=== PATIENT | female | born 1935 | race Caucasian/White ===

== ENCOUNTER 2017-04-01 07:46 | Outpatient (CLI) ==
[2015-09-09 10:15] VITALS: BMI 30.1
[2017-04-01 07:57] VITALS: BP 149/75; TEMP 97.3
[2017-04-01] MEDS ORDERED: PROLIA SUBCUT STA (07:58)
== END 2017-04-01 07:47 | disposition home or self-care (01) ==
LOC: OPMED 07:46
PROVIDERS: ATTEND Internal Medicine
DX: M85.80 Other specified disorders of bone density and structure, unspecified site (principal)
CPT/HCPCS: 96372

== ENCOUNTER 2017-09-18 06:27 | Emergency (ER) | payer OTHER ==
[2017-09-18 06:43] VITALS: BP 166/97; TEMP 99.3; BMI 30.2
[2017-09-18] MEDS ORDERED: LOPRESSOR PO STA (06:51)
--- NOTE | 2017-09-18 06:56 | ED.PDOC ---
General ED Provider: Dr. JAMILA LAWRENCE Chief Complaint: Hypertension Stated Complaint: Patient presents with feeling shakey, like her BP is high. Onset last evening. Pt admits to mild SOB intermittently, no nausea/vomiting, no fever or chills, denies any pain, no diaphoresis. On further questioning these symptoms have been recurring almost daily and coincide with "new BP med" ( anastrazole, which is an anti-breast cancer hormone tx) she began 2 months ago. She has not told her doctor about symptoms. Time Seen by Physician: 06:55 Mode of Arrival: Walk-In Information Source: Patient, Family Exam Limitations: No limitations Primary Care Provider: THEO DE LEON Nursing and Triage Documentation Reviewed and Agree: Yes Cardiovascular Complaint Exam - Hypertension Complaint/Exam Symptoms Are: Still present Timing: Intermittent Reported B/P Prior to Arrival: 170/94 Aggravating: Reports: None Alleviating: Reports: Rest Associated Signs and Symptoms: Reports: Anxiety Related History: Reports: Similar episode (has been occurring alomost daily x 2 months) Related Surgical History: Reports: None Cardiac Risk Factors: Reports: Hypertension Recent Change in Medications: Yes (2 months ago changed to new BP med) A/V Nicking: No Papilledema Present: No JVD Present: No Carotid Bruit Present: No Femoral Pulses Bounding: No Differential Diagnoses: Hypertension, Angina (atypical), Other (adverse reaction to medication) Review of Systems - Review Of Systems Constitutional: Reports: No symptoms Eyes: Reports: No symptoms Ears, Nose, Mouth, Throat: Reports: No symptoms Respiratory: Reports: Short of air (mild) Cardiac: Reports: Palpitations (feels like her heart is racing (even though it is not)) GI: Reports: No symptoms : Reports: No symptoms Musculoskeletal: Reports: No symptoms Skin: Reports: No symptoms Neurological: Reports: Anxiety Endocrine: Reports: No symptoms Hematologic/Lymphatic: Reports: No symptoms All Other Systems: Reviewed and Negative Past Medical History - Past Medical History Previously Healthy: Yes Endocrine: Reports: None Cardiovascular: Reports: Hypertension Respiratory: Reports: None Hematological: Reports: None Gastrointestinal: Reports: GERD Genitourinary: Reports: None Neuro/Psych: Reports: None Musculoskeletal: Reports: None Cancer: Reports: Breast (6 years ago) Last Menstrual Period: hyst Other Pertinent Past Medical History: LEFT MASTECTOMY - Surgical History General Surgical History: Reports: Hysterectomy, Adenoidectomy, Other (LEFT MASTECTOMY) - Family History Family History: Reports: Unknown - Social History Smoking Status: Never smoker Hx Substance Use: No Alcohol Screening: None Lives: With family - Immunizations Tetanus Shot up to Date: Yes Influenza Vaccine within 12 Months: Yes Pneumococcal Vaccine up to Date: No Physical Exam - Physical Exam Appearance: Well-appearing, No pain distress, Well-nourished Ill-appearing: None Pain Distress: None Eyes: MARIAM, EOMI, Conjunctiva clear ENT: Ears normal, Nose normal, Oropharynx normal Neck: Supple Respiratory: Airway patent, Breath sounds clear, Breath sounds equal, Respirations nonlabored Cardiovascular: RRR, Pulses normal, No rub, No murmur GI/: Soft, Nontender, No masses, Bowel sounds normal, No Organomegaly Musculoskeletal: Normal strength, ROM intact, No edema, No calf tenderness Skin: Warm, Dry, Normal color Neurological: Sensation intact, Motor intact, Reflexes intact, Cranial nerves intact, Alert, Oriented Psychiatric: Affect appropriate, Mood appropriate Interpretation - Radiology Interpretation Radiology Interpretation By: Radiologist Radiology Results: No acute changes Exam Interpreted: CXR - EKG Interpretation Time of EKG #1: 06:56 Rate: Normal Rhythm: Sinus Leander: Left ST Segment: Normal Interpretation: Left axis deviation, otherwise normal Critical Care Note - Critical Care Note Total Time (mins): 0 Course - Course Hematology/Chemistry: 09/18/17 07:08 09/18/17 07:08 Orders, Labs, Meds: Lab Review 09/18/17 09/18/17 09/18/17 07:08 07:08 07:25 WBC 6.08 RBC 4.09 L Hgb 12.1 Hct 34.5 L MCV 84.4 MCH 29.6 MCHC 35.1 RDW Coeff of Inna 12.4 Plt Count 277 Immature Gran % (Auto) 0.2 Neut % (Auto) 72.3 Lymph % (Auto) 18.3 [place] % (Auto) 6.4 Eos % (Auto) 2.1 Baso % (Auto) 0.7 Immature Gran # (Auto) 0.0 Neut # 4.4 Lymph # 1.1 [place] # 0.4 Eos # 0.1 Baso # 0.0 ESR 10 Sodium 125 L Potassium 4.3 Chloride 94 L Carbon Dioxide 19 L Anion Gap 16.3 BUN 7 Creatinine 0.74 Estimated GFR (MDRD) 75.00 BUN/Creatinine Ratio 9.45 Glucose 140 H Calcium 9.2 Total Bilirubin 0.53 AST 15 ALT 13 Alkaline Phosphatase 30 L Total Protein 6.8 Albumin 3.8 Globulin 3.0 Albumin/Globulin Ratio 1.27 Urine Color Urine Clarity Urine pH Ur Specific [place] Urine Protein Urine Glucose (UA) Urine Ketones Urine Blood Urine Nitrite Urine Bilirubin Urine Urobilinogen Ur Leukocyte Esterase Urine Microscopic RBC Ur Squamous Epith Cells Influenza A (Rapid) Negative Influenza B (Rapid) Negative 09/18/17 07:25 WBC RBC Hgb Hct MCV MCH MCHC RDW Coeff of Inna Plt Count Immature Gran % (Auto) Neut % (Auto) Lymph % (Auto) [place] % (Auto) Eos % (Auto) Baso % (Auto) Immature Gran # (Auto) Neut # Lymph # [place] # Eos # Baso # ESR Sodium Potassium Chloride Carbon Dioxide Anion Gap BUN Creatinine Estimated GFR (MDRD) BUN/Creatinine Ratio Glucose Calcium Total Bilirubin AST ALT Alkaline Phosphatase Total Protein Albumin Globulin Albumin/Globulin Ratio Urine Color Yellow Urine Clarity Clear Urine pH 6.0 Ur Specific [place] 1.015 Urine Protein Negative Urine Glucose (UA) Negative Urine Ketones Negative Urine Blood Trace-intact Urine Nitrite Negative Urine Bilirubin Negative Urine Urobilinogen 0.2 Ur Leukocyte Esterase Negative Urine Microscopic RBC 0-2 Ur Squamous Epith Cells Not present Influenza A (Rapid) Influenza B (Rapid) Orders Category Date Time Status EKG-(ED ONLY) Stat CARDIO 09/18/17 06:49 Completed [employer]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] .ONCE EMERGENCY 09/18/17 06:50 Active BLOOD CULTURE (ED ONLY) Stat LAB 09/18/17 07:08 Received CBC W/ AUTO DIFF Stat LAB 09/18/17 07:08 Completed COMPREHENSIVE METABOLIC PANEL Stat LAB 09/18/17 07:08 Completed ESR Stat LAB 09/18/17 07:08 Completed MOLECULAR GROUP A STREP Stat LAB 09/18/17 07:25 Results RAPID FLU A/B Stat LAB 09/18/17 07:25 Completed STREP SCREEN Stat LAB 09/18/17 07:25 Results URINALYSIS C & S IF INDICATED Stat LAB 09/18/17 07:25 Completed Metoprolol Tartrate [Lopressor] MEDS 09/18/17 06:51 Discontinued 100 mg PO ONCE STA CXR [CHEST, 2 VIEWS PA & LAT] Stat RADS 09/18/17 06:50 Completed Medications Discontinued Medications Generic Name Dose Route Start Last Admin Trade Name Freq PRN Reason Stop Dose Admin Metoprolol Tartrate 100 mg 09/18/17 06:51 09/18/17 06:58 Lopressor PO 09/18/17 06:52 100 mg ONCE STA Administration Vital Signs: Temp Pulse Resp BP Pulse Ox 09/18/17 06:30 99.3 F 80 20 166/97 H 99 AMI Core - Clinical Trial Participant Clinical Trial Participant: No - Palliative Care Palliative Care: none - Aspirin Reason for not ordering Aspirin: not indicated - Statins Reason for not ordering Statins: not indicated - Fibrinolytic Reason for not ordering Fibrinolytic: not indicated - EKG Initial Interpretation EKG Initial Interpretation Date: 09/18/17 (Left axis deviation, otherwise WNL) DONI Risk Score Age >/= 65: Yes >/= 3 CAD Risk Factors: No Known CAD (Stenosis >/= 50%): No ASA Use in Past 7 Days: No Severe Angina (>/= 2 episodes in 24 hours): No EKG ST Changes >/= 0.5mm: No Postive Cardiac Marker: No DONI Total Score: 1 DONI Risk Score: Risk Score Odds of by 30D 0 0.1 (0.1-0.2) 1 0.3 (0.2-0.3) 2 0.4 (0.3-0.5) 3 0.7 (0.6-0.9) 4 1.2 (1.0-1.5) 5 2.2 (1.9-2.6) 6 3.0 (2.5-3.6) 7 4.8 (3.8-6.1) Departure - Departure Time of Disposition: 08:06 Disposition: HOME SELF-CARE Discharge Problem: Adverse drug reaction Qualifiers: Encounter type: initial encounter Qualified Code(s): T88.7XXA - Unspecified adverse effect of drug or medicament, initial encounter Instructions: Adverse Drug Reaction (ED) Condition: Good Pt referred to PMD for follow-up: Yes (Follow up with your oncologist and your personal doctor MARCOS) Additional Instructions: Stop taking anastrazole. Allergies/Adverse Reactions: Allergies shellfish derived Adverse Reaction (Verified 09/18/17 06:43) Difficulty Swallowing cheddar cheese Adverse Reaction (Uncoded 09/18/17 06:43) Difficulty Swallowing Home Medications: Ambulatory Orders Metoprolol Succinate [Toprol Xl] 100 mg PO DAILY 10/03/13 Omeprazole [Prilosec] 20 mg PO QDAC 10/03/13 Anastrozole 1 mg PO DAILY 09/18/17 Isosorbide Mononitrate [Imdur] 30 mg PO DAILY 09/18/17 Losartan Potassium [Cozaar] 50 mg PO DAILY 09/18/17 Paroxetine HCl 10 mg PO DAILY 09/18/17 Simvastatin [Zocor] 40 mg PO DAILY 09/18/17 Disposition Discussed With: Patient
[2017-09-18 07:14] LABS: BASOPHILS % (AUTO) 0.7 % (0.0-3.0); EOSINOPHILS # (AUTO) 0.1 K/ul (0.0-0.7); EOSINOPHILS % (AUTO) 2.1 % (0.0-7.0); HEMATOCRIT 34.5 % (37.0-47.0); HEMOGLOBIN 12.1 g/dl (12.0-16.0); IMMATURE GRANULOCYTE % (AUTO) 0.2 % (0.0-5.0); LYMPHOCYTES # (AUTO) 1.1 K/uL (0.60-3.4); LYMPHOCYTES % (AUTO) 18.3 (10.0-50.0); MEAN CORPUSCULAR HEMOGLOBIN 29.6 pg (27.0-31.0); MEAN CORPUSCULAR HGB CONC 35.1 (31.8-35.4); MEAN CORPUSCULAR VOLUME 84.4 fl (81.0-99.0); MONOCYTES # (AUTO) 0.4 K/uL (0.4-2.0); MONOCYTES % (AUTO) 6.4 (0-10); NEUTROPHILS # (AUTO) 4.4 K/ul (2.0-6.9); NEUTROPHILS % (AUTO) 72.3; PLATELET COUNT 277 10^3/uL (140-440); RED BLOOD COUNT 4.09 10^6/ul (4.20-5.40); WHITE BLOOD COUNT 6.08 K/ul (4.6-10.2)
[2017-09-18 07:33] LABS: ALBUMIN 3.8 g/dL (3.4-5.0); ALBUMIN/GLOBULIN RATIO 1.27; ANION GAP 16.3; BILIRUBIN,TOTAL 0.53 mg/dL (0.00-1.20); BUN/CREATININE RATIO 9.45; CALCIUM 9.2 mg/dL (8.2-10.2); CREATININE 0.74 mg/dL (0.60-1.30); POTASSIUM 4.3 mmol/L (3.5-5.10); TOTAL PROTEIN 6.8 g/dL (5.8-8.1)
[2017-09-18 07:36] LABS: BILIRUBIN,URINE Negative (NEGATIVE); KETONES,URINE Negative (NEGATIVE); LEUKOCYTE ESTERASE ,URINE Negative (NEGATIVE); NITRITE,URINE Negative (NEGATIVE); PROTEIN,URINE Negative (NEGATIVE); URINE, BLOOD Trace-intact (NEGATIVE)
[2017-09-18 07:38] LABS: ADD URINE MICROSCOPIC YES
[2017-09-18 07:41] LABS: ERYTHROCYTE SEDIMENTATION RATE 10 mm/hr (0-20); ESR INTERNAL QC INTERNAL QC VALID
--- NOTE | 2017-09-18 07:45 | DI ---
EXAM: Chest two views HISTORY: Chest, two-view COMPARISON: Fever TECHNIQUE: Two views of the chest were performed FINDINGS: The lungs are clear. Lungs are hyperinflated. There is no pleural effusion or pneumothorax . The heart is normal in size. The mediastinal contour is normal, noting atherosclerosis. There ar e no acute abnormalities of the bones. Surgical clips left axillary region. IMPRESSION: 1. No acute cardiopulmonary process. 2. Hyperinflated lungs may suggest chronic obstructive pulmonary disease.
[2017-09-18 07:49] LABS: FLU INTERNAL QC INTERNAL QC VALID; RAPID FLU A NEGATIVE (NEGATIVE); RAPID FLU B NEGATIVE (NEGATIVE)
== END 2017-09-18 08:15 | disposition home or self-care (01) ==
LOC: ED 06:27
DX: T88.7XXA Unspecified adverse effect of drug or medicament, initial encounter (principal); I10 Essential (primary) hypertension; R06.02 Shortness of breath; Z79.899 Other long term (current) drug therapy; Z85.3 Personal history of malignant neoplasm of breast
CPT/HCPCS: 36415; 80053; 81001; 85025; 85651; 87040; 87651; 87804; 87880; 93005; 93010; 99284

== ENCOUNTER 2018-04-13 11:23 | Outpatient (POV) | payer OTHER ==
[2013-05-17 10:01] VITALS: TEMP 98.4
== END 2018-04-13 17:00 ==
LOC: OUTPT 11:23
PROVIDERS: ATTEND Otolaryngology
DX: H91.90 Unspecified hearing loss, unspecified ear (principal)

== ENCOUNTER 2018-04-19 12:42 | Emergency (ER) | payer OTHER ==
[2018-04-19 12:49] VITALS: TEMP 98.4; BMI 30.1
--- NOTE | 2018-04-19 13:28 | ED.PDOC ---
General ED Provider: Dr. YANIRA JOHNSON Chief Complaint: Hypertension Stated Complaint: Dizziness and uncontrolled Hypertension. Time Seen by Physician: 12:50 Mode of Arrival: Wheelchair Information Source: Patient Exam Limitations: No limitations Primary Care Provider: THEO DE LEON Nursing and Triage Documentation Reviewed and Agree: Yes Reviewed sepsis parameters & appropriate labs ordered?: Yes System Inflammatory Response Syndrome: Not Applicable Sepsis Protocol: For patient's 13 years and over: Temp is 96.8 and below OR 101 and greater Pulse >90 BPM Resp >20/minute Acutely Altered Mental Status Are patient's symptoms suggestive of a new infection, such as: -Pneumonia -Skin, Soft Tissue -Endocarditis -UTI -Bone, Joint Infection -Implantable Device -Acute Abdominal Infection -Wound Infection -Meningitis -Blood Stream Catheter Infection -Unknown System Inflammatory Response Syndrome: Not Applicable Cardiovascular Complaint Exam - Hypertension Complaint/Exam Onset/Duration: 2 weeks Symptoms Are: Still present Timing: Constant (Dizziness fairly consistent) Aggravating: Reports: Exertion Alleviating: Reports: None Associated Signs and Symptoms: Reports: Anxiety, Recent stress, Headache, Tingling, Weakness, Dizziness Related History: Reports: Similar episode, Current ARBs, Current Beta Clover, Current Ca Guido.Clover Related Surgical History: Reports: None Cardiac Risk Factors: Reports: Hypertension, Elevated lipids, Family history Recent Change in Medications: No A/V Nicking: No Papilledema Present: No JVD Present: No Carotid Bruit Present: No Femoral Pulses Bounding: No Differential Diagnoses: Hypertension Quality Indicator For Non-Traumatic Chest Pain/Syncope: EKG Performed Review of Systems - Review Of Systems Constitutional: Reports: Weakness Eyes: Reports: No symptoms Ears, Nose, Mouth, Throat: Reports: No symptoms Respiratory: Reports: No symptoms Cardiac: Reports: No symptoms GI: Reports: No symptoms : Reports: No symptoms Musculoskeletal: Reports: Back pain Skin: Reports: No symptoms Neurological: Reports: Other (dizziness). Denies: Anxiety, Depressed, Headache , Numbness, Tingling, Tonic-Clonic seizures Endocrine: Reports: No symptoms Hematologic/Lymphatic: Reports: No symptoms All Other Systems: Reviewed and Negative Past Medical History - Past Medical History Previously Healthy: Yes Endocrine: Reports: None Cardiovascular: Reports: Hypertension Respiratory: Reports: None Hematological: Reports: None Gastrointestinal: Reports: GERD Genitourinary: Reports: None Neuro/Psych: Reports: None Musculoskeletal: Reports: None Cancer: Reports: Breast (6 years ago) Last Menstrual Period: none Other Pertinent Past Medical History: LEFT MASTECTOMY - Surgical History General Surgical History: Reports: Hysterectomy, Adenoidectomy, Other (LEFT MASTECTOMY) - Family History Family History: Reports: Unknown - Social History Smoking Status: Never smoker Hx Substance Use: No Alcohol Screening: None - Immunizations Influenza Vaccine within 12 Months: Yes Pneumococcal Vaccine up to Date: No Physical Exam - Physical Exam Appearance: Well-appearing, No pain distress, Well-nourished, Obese Ill-appearing: None Pain Distress: None Eyes: MARIAM, EOMI, Conjunctiva clear ENT: Ears normal, Nose normal, Oropharynx normal Neck: Supple Respiratory: Airway patent, Breath sounds clear, Breath sounds equal, Respirations nonlabored Cardiovascular: RRR, Pulses normal, No rub, No murmur GI/: Soft, Nontender, No masses, Bowel sounds normal, No Organomegaly Musculoskeletal: Normal strength, ROM intact, No edema, No calf tenderness Skin: Warm, Dry, Normal color Neurological: Sensation intact, Motor intact, Reflexes intact, Cranial nerves intact, Alert, Oriented Psychiatric: Affect appropriate, Mood appropriate Critical Care Note - Critical Care Note Total Time (mins): 90 Comments: Monitored patients BP and VS to assure BP responed to administerd therapy Answered all questions Discharged to home in stable and satisfactory condition Course - Course Hematology/Chemistry: 04/19/18 14:00 04/19/18 14:00 Orders, Labs, Meds: Lab Review 04/19/18 04/19/18 04/19/18 14:00 14:00 14:10 WBC 7.39 RBC 4.07 L Hgb 11.6 L Hct 33.8 L MCV 83.0 MCH 28.5 MCHC 34.3 RDW Coeff of Inna 12.9 Plt Count 296 Immature Gran % (Auto) 0.3 Neut % (Auto) 71.1 Lymph % (Auto) 17.3 [place] % (Auto) 7.6 Eos % (Auto) 3.0 Baso % (Auto) 0.7 Immature Gran # (Auto) 0.0 Neut # (Auto) 5.3 Lymph # (Auto) 1.3 [place] # (Auto) 0.6 Eos # (Auto) 0.2 Baso # (Auto) 0.1 Sodium 127 L Potassium 4.4 Chloride 93 L Carbon Dioxide 22 L Anion Gap 16.4 BUN 7 Creatinine 0.71 Estimated GFR (MDRD) 78.00 BUN/Creatinine Ratio 9.85 Glucose 113 Calcium 9.6 Magnesium 1.6 L Total Bilirubin 0.5 AST 20 ALT 16 Alkaline Phosphatase 46 L Troponin I < 0.0100 Total Protein 7.0 Albumin 3.6 Globulin 3.4 Albumin/Globulin Ratio 1.06 Urine Color Yellow Urine Clarity Clear Urine pH 8.5 Ur Specific [place] 1.015 Urine Protein Negative Urine Glucose (UA) Negative Urine Ketones Trace Urine Blood Trace-intact Urine Nitrite Negative Urine Bilirubin Negative Urine Urobilinogen 0.2 Ur Leukocyte Esterase Negative Urine Microscopic RBC 0-2 Ur Squamous Epith Cells Not present Orders Category Date Time Status EKG-(ED ONLY) Stat CARDIO 04/19/18 13:30 Completed IV [ED IV/MEDIPORT/POWERPORT] .ONCE EMERGENCY 04/19/18 13:32 Active CBC W/ AUTO DIFF Stat LAB 04/19/18 14:00 Completed CMP [COMPREHENSIVE METABOLIC PANEL] Stat LAB 04/19/18 14:00 Completed MAGNESIUM Stat LAB 04/19/18 14:00 Completed TROPONIN I Stat LAB 04/19/18 14:00 Completed UA [URINALYSIS C & S IF INDICATED] Stat LAB 04/19/18 14:10 Completed 0.9 % Sodium Chloride [Saline Flush] MEDS 04/19/18 13:32 Active 1 syr IVF PRN PRN Isosorbide Mononitrate [Mon[place]] MEDS 04/19/18 13:44 Discontinued 10 mg PO ONCE STA Isosorbide Mononitrate [Monoket] MEDS 04/19/18 16:16 Discontinued 10 mg PO ONCE STA CHEST, 2 VIEWS PA & LAT Stat RADS 04/19/18 13:[address] HEAD W/O CONTRAST Stat RADS 04/19/18 13:31 Completed Medications Generic Name Dose Route Start Last Admin Trade Name Freq PRN Reason Stop Dose Admin Sodium Chloride 1 syr 04/19/18 13:32 Saline Flush IVF PRN PRN To flush IV Discontinued Medications Generic Name Dose Route Start Last Admin Trade Name Freq PRN Reason Stop Dose Admin Isosorbide Mononitrate 10 mg 04/19/18 13:44 04/19/18 13:59 [place] PO 04/19/18 13:45 10 mg ONCE STA Administration Isosorbide Mononitrate 10 mg 04/19/18 16:16 04/19/18 16:23 [place] PO 04/19/18 16:17 10 mg ONCE STA Administration Vital Signs: Temp Pulse Resp BP Pulse Ox 04/19/18 17:38 64 17 147/63 H 04/19/18 17:07 75 18 171/91 H 04/19/18 12:44 98.4 F 75 20 176/91 H 99 DONI Risk Score DONI Risk Score: Risk Score Odds of by 30D 0 0.1 (0.1-0.2) 1 0.3 (0.2-0.3) 2 0.4 (0.3-0.5) 3 0.7 (0.6-0.9) 4 1.2 (1.0-1.5) 5 2.2 (1.9-2.6) 6 3.0 (2.5-3.6) 7 4.8 (3.8-6.1) Departure - Departure Time of Disposition: 17:50 Disposition: HOME SELF-CARE Discharge Problem: Hypertension, Dizziness, Hyponatremia Instructions: Hypertension (ED), Dizziness (ED), Hyponatremia (ED) Condition: Good Pt referred to PMD for follow-up: Yes (1-2 weeks) IPMP verified?: No Additional Instructions: Monitor BP daily Take additional Isosorbide daily Maintain adequated salt and water consumption Avoid excess free water in diet and consume beverages such as gatorade etc, and other foods as directed Allergies/Adverse Reactions: Allergies shellfish derived Adverse Reaction (Verified 04/19/18 12:47) Difficulty Swallowing cheddar cheese Adverse Reaction (Uncoded 09/18/17 06:43) Difficulty Swallowing Home Medications: Ambulatory Orders Metoprolol Succinate [Toprol Xl] 100 mg PO DAILY 10/03/13 Omeprazole [Prilosec] 20 mg PO QDAC 10/03/13 Anastrozole 1 mg PO DAILY 09/18/17 Isosorbide Mononitrate [Imdur] 30 mg PO DAILY 09/18/17 Losartan Potassium [Cozaar] 50 mg PO BID 09/18/17 Paroxetine HCl 10 mg PO DAILY 09/18/17 Simvastatin [Zocor] 40 mg PO DAILY 09/18/17 Isosorbide Mononitrate [Imdur] 30 mg PO DAILY #60 tab 05/22/18 Disposition Discussed With: Patient, Family Additional Information: BP 166 /77 1515 hrs Feeling better 1620hrs BP 165/94 Feeling slightly better but concerned over BP Feeling much better after additional dose of Isorbide 20 mg BP146/63
[2018-04-19] MEDS ORDERED: MONOKET PO STA ×2 (13:44→16:16)
--- NOTE | 2018-04-19 14:23 | DI ---
EXAM: Two views of the chest. History: Dizziness and hypertension. Comparison: Chest radiograph 09/18/2017 Findings: Heart size is normal. No focal consolidation. No appreciable pleural fluid and no pneumot horax. Surgical clips seen within the left axilla. No acute osseous abnormalities. Atherosclerotic vascular calcifications. Impression: No acute cardiopulmonary process
--- NOTE | 2018-04-19 14:41 | CT ---
Exam: CT of the brain without intravenous contrast. Comparison: 09/09/2015. Reason for exam: Dizziness. FINDINGS: No acute intracranial hemorrhage, mass effect, ventricular dilatation, or territorial infa rction. The quadrigeminal and ambient cisterns are patent. There is no extraaxial fluid collection. Parenchymal changes are seen consistent with chronic microvascular disease and age related atrophy. No depressed calvarial fracture is seen. No discrete air fluid levels are seen in the paranasal si nuses. The mastoid air cells appear normally pneumatized. Impression: 1. No acute intracranial findings. 2. 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
[2018-04-19 17:38] VITALS: BP 147/63
== END 2018-04-19 18:20 | disposition home or self-care (01) ==
LOC: ED 12:42
DX: I10 Essential (primary) hypertension (principal); R42 Dizziness and giddiness; E87.1 Hypo-osmolality and hyponatremia; E78.5 Hyperlipidemia, unspecified; R53.1 Weakness; Z79.899 Other long term (current) drug therapy
CPT/HCPCS: 36415; 80053; 81001; 83735; 84484; 85025; 93005; 93010; 99283

== ENCOUNTER 2018-12-08 08:45 | Outpatient (CLI) | payer OTHER ==
[2018-12-08 09:21] VITALS: BP 163/76; TEMP 96.9
[2018-12-08] MEDS: PROLIA SUBCUT STA (09:25)
== END 2018-12-08 08:46 | disposition home or self-care (01) ==
LOC: OPMED 08:45
PROVIDERS: ATTEND Internal Medicine
DX: M81.0 Age-related osteoporosis without current pathological fracture (principal)
CPT/HCPCS: 96372

== ENCOUNTER 2019-04-27 08:02 | Outpatient (CLI) | payer OTHER ==
[2013-05-17 10:01] VITALS: TEMP 98.4
== END 2019-04-27 08:03 | disposition home or self-care (01) ==
LOC: LAB 08:02
PROVIDERS: ATTEND Internal Medicine
DX: E87.5 Hyperkalemia (principal)
CPT/HCPCS: 36415; 80053

== ENCOUNTER 2019-07-28 10:09 | Outpatient (CLI) | payer OTHER ==
[2013-05-17 10:01] VITALS: TEMP 98.4
== END 2019-07-28 10:10 | disposition home or self-care (01) ==
LOC: LAB 10:09
PROVIDERS: ATTEND Internal Medicine
DX: D64.9 Anemia, unspecified (principal); E78.5 Hyperlipidemia, unspecified; M81.0 Age-related osteoporosis without current pathological fracture; I10 Essential (primary) hypertension; E87.1 Hypo-osmolality and hyponatremia
CPT/HCPCS: 36415; 80053; 85025